=== PATIENT | female | born 1975 | race Caucasian/White ===

== ENCOUNTER 2020-02-27 16:55 | Emergency (ER) | payer OTHER ==
[2020-02-27 21:21] LABS: HEMOGLOBIN 12.6 gm/dl (12.3-15.3); RED BLOOD COUNT 4.63 M/UL (4.00-5.10); WHITE BLOOD COUNT 11.6 K/UL (4.5-11.0)
[2020-02-27 21:42] LABS: BUN/CREATININE RATIO 16 (0-10)
== END 2020-02-28 00:10 | disposition home or self-care (01) ==
LOC: ER1 16:55
PROVIDERS: Family Medicine
DX: R06.02 Shortness of breath (principal); Z20.822 Contact with and (suspected) exposure to COVID-19
CPT/HCPCS: 80053; 82550; 82553; 83605; 84484; 85025; 85379; 93005; 99285; Q9967; U0002

== ENCOUNTER → 2020-05-15 | Outpatient (CLI) | payer OTHER | LOC: KOH-I 14:50 | DX: E04.1 Nontoxic single thyroid nodule (principal) | CPT/HCPCS: 76536 ==

== ENCOUNTER 2020-12-09 09:41 | Emergency (ER) | payer OTHER ==
[2020-12-09 10:28] LABS: HEMOGLOBIN 11.7 gm/dl (12.3-15.3); RED BLOOD COUNT 4.64 M/UL (4.00-5.10); WHITE BLOOD COUNT 7.8 K/UL (4.5-11.0)
[2020-12-09 12:06] LABS: BUN/CREATININE RATIO 14 (0-10)
[2020-12-09] MEDS ORDERED: ZOFRAN4 MG PO (13:08)
== END 2020-12-09 13:17 | disposition home or self-care (01) ==
LOC: ER1 09:41
PROVIDERS: Physician Assistant Medical
DX: R10.13 Epigastric pain (principal); R11.0 Nausea; K21.9 Gastro-esophageal reflux disease without esophagitis
CPT/HCPCS: 71045; 80053; 81001; 82150; 82550; 82553; 83690; 83874; 84484; 85025; 93005; 96374; 96375; 99284; C9113; J2405

== ENCOUNTER 2021-02-03 12:30 | Emergency (ER) | payer OTHER ==
[~2021-02-03 12:30] MED LIST: ZOFRAN4 MG PO
[2021-02-03 13:11] LABS: HEMOGLOBIN 10.9 gm/dl (12.3-15.3); RED BLOOD COUNT 4.25 M/UL (4.00-5.10)
[2021-02-03 13:39] LABS: BUN/CREATININE RATIO 17 (0-10)
[2021-02-03] MEDS ORDERED: PROTONIX40 MG PO (19:40)
[2021-02-03] MEDS ORDERED: ZOFRAN4 MG PO (19:40)
== END 2021-02-03 19:50 | disposition home or self-care (01) ==
LOC: ER1 12:30
PROVIDERS: Physician Assistant
DX: R07.89 Other chest pain (principal); R12 Heartburn; R20.2 Paresthesia of skin; R51.9 Headache, unspecified; K21.9 Gastro-esophageal reflux disease without esophagitis
CPT/HCPCS: 71045; 80053; 82550; 82553; 83874; 84484; 85025; 85379; 93005; 99285; Q9967